=== PATIENT | male | born 1970 | race African-American/Black ===

== ENCOUNTER 2020-11-07 13:21 | Outpatient (CLI) | payer MEDICAID ==
[~2020-11-07] VITALS: Ht 177.8 cm; Wt 92.5 kg
[2020-11-07 13:34] VITALS: BP 136/85
--- NOTE | 2020-11-07 17:29 | Consultation ---
DATE OF CONSULTATION: 11/07/2020 CHIEF COMPLAINT: Referral for screening colonoscopy. PAST MEDICAL HISTORY: None. PAST SURGICAL HISTORY: None. MEDICATIONS: PPI. FAMILY HISTORY: Noncontributory. SOCIAL HISTORY: The patient denies any tobacco, alcohol, or drug abuse. ALLERGIES: No known drug allergies. REVIEW OF SYSTEMS: Positive for GERD, bloating. PHYSICAL EXAMINATION: VITAL SIGNS: Temperature 97.7, blood pressure 136/85, pulse 69, respirations 20. Height is 5 feet 10 inches, weight is 204. HEENT: Normocephalic and atraumatic. Sclerae anicteric. NECK: Supple. No evidence of obvious lymphadenopathy. CARDIOVASCULAR: Regular rate and rhythm. Plus S1, S2. LUNGS: Clear to auscultation bilaterally. ABDOMEN: Positive bowel sounds. Soft and nontender. No rebound. No guarding. No peritoneal sign. EXTREMITIES: No cyanosis, no clubbing, no edema. ASSESSMENT AND PLAN: This is a 49-year-old male was referred for screening colonoscopy. The patient was given instruction for colonoscopy. Risks and benefits of the the procedure was explained to him in detail. We will schedule him as soon as authorization is obtained. Manuel Collier M.D. DR: Gretchen JOB#: [id number] CC:
== END 2020-11-07 15:21 | disposition home or self-care (01) ==
LOC: PAN 13:21
DX: K21.9 Gastro-esophageal reflux disease without esophagitis (principal); R14.0 Abdominal distension (gaseous)
CPT/HCPCS: 99203